=== PATIENT | female | born 1980 | race Caucasian/White ===

== ENCOUNTER → 2018-08-10 | Outpatient (CLI) | payer OTHER | LOC: FIMAGING 09:52 | PROVIDERS: ATTEND Obstetrics & Gynecology | DX: O09.522 Supervision of elderly multigravida, second trimester (principal); Z3A.21 21 weeks gestation of pregnancy; Z87.59 Personal history of other complications of pregnancy, childbirth and the puerperium ==

== ENCOUNTER 2018-12-18 06:00 | Inpatient (IN) | payer OTHER ==
[2018-12-18] MEDS ORDERED: AMMONIA AROMATIC 1 EACH AMP IH ONE ×2 (11:50→11:53)
[2018-12-18] MEDS ORDERED: LIDOCAINE 1% 300 MG/30 ML SDV ONE (11:50)
[2018-12-18] MEDS ORDERED: TERBUTALINE SULFATE 1 MG/ML VIAL ONE (11:50)
[2018-12-18] MEDS ORDERED: OLIVE OIL 118 ML BTL MISC ONE ×2 (11:50→11:52)
[2018-12-18] MEDS ORDERED: OXYTOCIN 10 UNIT/ML VIAL ONE (11:51)
[2018-12-18] MEDS ORDERED: MISOPROSTOL 200 MCG TAB ONE (11:51)
[2018-12-18] MEDS ORDERED: OXYTOCIN/RINGERS LACTATE 20 UNIT/1,000 ML BAG IV ONE (11:52)
[2018-12-18] MEDS ORDERED: LIDOCAINE 1% 300 MG/30 ML SDV SC PRN (12:03)
[2018-12-18] MEDS ORDERED: EPSOM SALT 454 GM TP PRN (12:03)
[2018-12-18] MEDS ORDERED: OXYTOCIN/RINGERS LACTATE 500 ML IV SCH ×2 (12:03→13:00)
[2018-12-18] MEDS ORDERED: OLIVE OIL 118 ML BTL MISC PRN (12:03)
[2018-12-18] MEDS ORDERED: LR 500 ML IV PRN ×2 (12:03→12:42)
[2018-12-18] MEDS ORDERED: IBUPROFEN 600 MG TAB PO PRN (12:03)
[2018-12-18] MEDS ORDERED: LR 1,000 ML IV PRN (12:03)
[2018-12-18] MEDS ORDERED: OXYTOCIN/RINGERS LACTATE 1,000 ML IV PRN (12:03)
[2018-12-18] MEDS ORDERED: MISOPROSTOL 200 MCG TAB PR PRN (12:03)
--- NOTE | 2018-12-18 13:23 | GHP ---
[f rep st] HISTORY AND PHYSICAL DATE OF ADMISSION: 12/18/2018 ADMITTING DIAGNOSIS: 1. Intrauterine at 39 weeks 3 days. 2. Elective induction of labor. HISTORY OF PRESENT ILLNESS: Patient is a 38-year-old 2, para 0-1-0-1, at 39 weeks 3 days with estimated due date 12/22/2018 by LMP 03/17/2018, and consistent with ultrasound at 10 weeks. The patient presents for an elective induction of labor. There were concerns about an unstable lie with polyhydramnios. Patient still feels as if baby girl's head is down. She was scanned today, which confirms cephalic presentation. Patient states good movement. She denies any leakage of fluid, vaginal bleeding, or any regular contractions at this time. The patient was examined by nurse on admission, and found to be 3 cm dilated, 70%, -2 station, bulging. The patient has good care at [facility], and presented in her first trimester. is complicated by AMA with negative NIPT. Level 2 ultrasound done with MFM was normal. The patient does have a history of preeclampsia in previous , and had normal baseline PIH labs and is taking a baby aspirin. Blood pressures remained stable throughout this . The patient has history of anxiety, currently not on any medications and no issues during the . The patient is a cystic fibrosis carrier, and father of baby tested negative. GBS culture is negative. The patient did receive flu vaccine as well as Tdap. PAST OBSTETRIC HISTORY: In December 2003, she delivered a viable male at 36 weeks, induced secondary to preeclampsia, weighing 5 pounds 10 ounces; had an uncomplicated vaginal delivery. GYNECOLOGIC HISTORY: Age of menarche is 17. Cycles every 28-30 days for 5 days. LMP 03/17/2018. The patient does have a history of abnormal Pap smears, and had a colpo in 09/2017 revealing PAULINE 1, and no treatment. 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 Patient denies exposure to any other sexually transmitted diseases. CURRENT MEDICATIONS: Include vitamins, DHA, baby aspirin. ALLERGIES: No known drug allergies. PAST MEDICAL HISTORY: PAULINE 1, anxiety, advanced maternal age and cystic fibrosis carrier. PAST SURGICAL HISTORY: [place] teeth extraction. FAMILY HISTORY: Maternal grandfather: Myocardial infarction. Maternal grandmother: Heart disease. Mother: Hypertension. Father: Asthma. Paternal grandfather: Colon cancer. Maternal aunt: Breast cancer. SOCIAL HISTORY: Patient is and lives with her and their son. She denies any alcohol, tobacco, or illicit drug use currently. REVIEW OF SYSTEMS: 10-point review of systems is negative. Pertinent positives noted in HPI. LABORATORY: First trimester H and H, 13.2 and 38.7, platelets 217. Blood type B positive, antibody negative. RPR nonreactive. Rubella immune. Hepatitis B surface antigen negative. HIV negative. Standard panel revealed cystic fibrosis carrier; father of baby tested negative. Baseline PIH labs normal. UA, urine culture, and urine drug screen all negative. Pap, gonorrhea , chlamydia cultures negative. Single AFP negative. Innatal screen 06/02/18. H and H 3rd trimester, 11.9 and 35.7. One-hour Glucola 88. GBS culture negative. Varicella immune. PHYSICAL EXAMINATION: VITAL SIGNS: On admission, vital signs are stable. Patient is afebrile, 37.3, blood pressure 115/69, heart rate 75, respirations 18. GENERAL: Patient is a well-nourished, well-developed female. Alert and oriented x3. No apparent distress. SKIN: Warm, dry without rash. NEURO: Grossly intact. CARDIOVASCULAR: Regular rate and rhythm. LUNGS: Clear to auscultation bilaterally. ABDOMEN: Gravid, soft, nontender. PELVIC: On exam , 3 cm, 70%, -2 station, bulging. EXTREMITIES: Normal to inspection without calf tenderness or edema. IMAGING: Bedside ultrasound confirms cephalic presentation. heart tones: Category 1 tracing with baseline 130s, positive accelerations , no decelerations, moderate variability. On toco, there are occasional contractions. ASSESSMENT/PLAN: Patient is a 38-year-old 2, para 0-1-0-1 at 39 weeks 3 days for elective induction. 1. Admit to Labor and Delivery. 2. Will start Pitocin per protocol since favorable cervix. 3. GBS culture is negative, no prophylactic antibiotics are needed. 4. Patient desires epidural for pain. 5. Anticipate spontaneous vaginal delivery. /[id number]/MODL MTDD
[2018-12-18 13:24] LABS: PLATELET COUNT 167 10^3/uL (150-400)
--- NOTE | 2018-12-18 18:54 | OBPROG ---
Labor Progress Note Assessment/Plan: Assessment: 38 y/o @ 39 3/7 weeks for elective IOL Plan: Pitocin at 14 mu/min SVE: 5/80/-2, BBOW Pt desires epidural prior to AROM Will page anesthesiology FHTs are Category 1, will cont to monitor Anticipate 12/18/18 18:47 Subjective/Intrapartum Course: 12/18/18 18:49 Pt is requesting an epidural at this time. Objective: 12/18/18 13:00 Patient ABO/Rh B POSITIVE 12/18/18 13:00 - SVE Dilation (cm): 5 Effacement (%): 80 Station: -2 Membranes: Intact - Contraction Pattern Assessment Current Contraction Pattern: Irregular (q3-5 min with coupling) - FHR Assessment Rodríguez FHR (bpm): 130 FHR Pattern Variability: Moderate FHR Category: 1 - AP Antepartum Course: 12/18/18 18:50 AMA with neg NIPT and normal Level II scan h/o preeclampsia with G1 with normal baseline labs, on baby ASA and no issues with BPs this CF carrier, FOB tested negative At 33 weeks EFW 37% and ALAN borderline high at 22 and then at 35 weeks ALAN at 24 and baby was breech; unstable lie Oxytocin Orders Assessment - Pre-Induction/Augmentation Assessment Gestational Age: 39 week(s) and 3 day(s) ICD10 Worksheet Patient Problems: Problems Problem Status Onset Encounter for elective induction of labor Acute - ICD10 Problem Qualifiers (1) Encounter for elective induction of labor
[2018-12-18] MEDS ORDERED: PHENYLEPHRINE HCL 100 MCG/ML SYR ONE (18:55)
[2018-12-18] MEDS ORDERED: BUPIVACAINE 0.25% 10 ML SDV ONE (18:55)
[2018-12-18] MEDS ORDERED: fentaNYL 200 MCG, BUPIVACAINE 0.5% 20 ML in NS 100 ML EP SCH (19:00)
--- NOTE | 2018-12-18 19:43 | OBPROG ---
Labor Progress Note Assessment/Plan: Assessment: 38 y/o @ 39 3/7 weeks for elective IOL Plan: Pt is comfortable, s/p epidural Pitocin at 14 mu/min AROM - large amount of clear fluid noted FHTs - Cat I, reassuring Anticipate 12/18/18 19:40 Subjective/Intrapartum Course: 12/18/18 18:49 Pt is requesting an epidural at this time. 12/18/18 19:41 Pt is comfortable, s/p epidural. Objective: 12/18/18 13:00 Patient ABO/Rh B POSITIVE 12/18/18 13:00 - SVE Dilation (cm): 5 Effacement (%): 80 Station: -2 Membranes: AROM Amniotic Fluid Color: Clear (large amount clear fluid noted) - Contraction Pattern Assessment Current Contraction Pattern: Irregular (q2-4 min with coupling) - FHR Assessment Rodríguez FHR (bpm): 130 FHR Pattern Variability: Moderate FHR Category: 1 - Procedures Non-surgical Procedures: Amniotomy - AP Antepartum Course: 12/18/18 18:50 AMA with neg NIPT and normal Level II scan h/o preeclampsia with G1 with normal baseline labs, on baby ASA and no issues with BPs this CF carrier, FOB tested negative At 33 weeks EFW 37% and ALAN borderline high at 22 and then at 35 weeks ALAN at 24 and baby was breech; unstable lie Oxytocin Orders Assessment - Pre-Induction/Augmentation Assessment Gestational Age: 39 week(s) and 3 day(s) ICD10 Worksheet Patient Problems: Problems Problem Status Onset Encounter for elective induction of labor Acute - ICD10 Problem Qualifiers (1) Encounter for elective induction of labor
[2018-12-18] MEDS ORDERED: NALOXONE HCL 0.4 MG/ML INJ IVP PRN (19:45)
[2018-12-18] MEDS ORDERED: ONDANSETRON 4 MG/2 ML VIAL IVP PRN (19:45)
--- NOTE | 2018-12-18 19:46 | PREANESOB ---
Obstetric Pre-Anesthesia Info - General Info Proposed Procedure: Labor Epidural : 2 Para: 1 JUAN A: 12/22/18 Gestational Age: 39 week(s) and 3 day(s) - Info Status: Full Term - Labor Status Cervical Dilation per last OB SVE: 5 Station per last OB SVE: -2 Amniotic Fluid Color: Clear (large amount clear fluid noted) Indications for Labor Analgesia: Pain Control Labor Epidural: Yes Anesthesia Allergies/Adverse Reactions: Allergy/AdvReac Type Severity Reaction Status Date / Time No Known Allergies Allergy Unverified 12/15/18 13:26 Home Medications: Medication Instructions Recorded Aspirin [Aspirin 81mg (*)] 81 mg PO DAILY 12/18/18 1 tab PO DAILY 12/18/18 Visit Medications: Generic Name Dose Route Start Last Admin Trade Name Freq PRN Reason Stop Dose Admin Lactated Ringer's 500 mls @ 500 mls/hr 12/18/18 12:03 Lr IV PRN PRN Maternal Hypotension Lactated Ringer's 1,000 mls @ 0 mls/hr 12/18/18 12:03 Lr IV 12/19/18 12:02 PRN PRN SEE PROTOCOL CONDITIONS Protocol Per Protocol Oxytocin/Lactated Ringer's 500 mls @ 0 mls/hr 12/18/18 12:03 Pitocin 30 Units/Lr (Premix) IV 06/16/19 12:02 CONT VERONICA Protocol Per Protocol Oxytocin/Lactated Ringer's 1,000 mls @ 125 mls/hr 12/18/18 12:03 Pitocin 20 Units/Lr (Premix) IV PRN PRN Post bleeding Lactated Ringer's 500 mls @ 500 mls/hr 12/18/18 12:42 Lr IV 12/19/18 12:42 PRN PRN Maternal Hypotension Oxytocin/Lactated Ringer's 500 mls @ 0 mls/hr 12/18/18 13:00 Pitocin 30 Units/Lr (Premix) IV 06/16/19 12:59 CONT [facility] Protocol Per Protocol Fentanyl 200 mcg/ Bupivacaine 100 mls @ 0 mls/hr 12/18/18 19:00 HCl 20 ml/ Sodium Chloride EP 12/28/18 18:59 CONT [facility] Protocol As Directed Ibuprofen 600 mg 12/18/18 12:03 Motrin PO ONCE PRN post , pain Lidocaine HCl 300 mg 12/18/18 12:03 Lidocaine Hcl 1% SC 06/16/19 12:02 ONCE PRN episiotomy Magnesium Sulfate 454 gm 12/18/18 12:03 Epsom Salt TP 06/16/19 12:02 Q1H PRN perineal discomfort Misoprostol 800 - 1,000 mcg 12/18/18 12:03 Cytotec MO ONCE PRN Vaginal Atony/Bleeding [place] Oil 118 ml 12/18/18 12:03 Sweet Oil MISC 06/16/19 12:02 ONCE PRN perineal massage Discontinued Medications Generic Name Dose Route Start Last Admin Trade Name Freq PRN Reason Stop Dose Admin Ammonia (Aromatic Spirit) Confirm 12/18/18 11:50 Ammonia Aromatic Administered 12/18/18 11:51 Dose 1 each IH .STK-MED ONE Ammonia (Aromatic Spirit) Confirm 12/18/18 11:53 Ammonia Aromatic Administered 12/18/18 11:54 Dose 1 each IH .STK-MED ONE Bupivacaine HCl Confirm 12/18/18 18:55 Sensorcaine 0.25% Sdv Administered 12/18/18 18:56 Dose 10 ml .ROUTE .STK-MED ONE Lidocaine HCl Confirm 12/18/18 11:50 Lidocaine Hcl 1% Administered 12/18/18 11:51 Dose 300 mg .ROUTE .STK-MED ONE Misoprostol Confirm 12/18/18 11:51 Cytotec Administered 12/18/18 11:52 Dose 1,000 mcg .ROUTE .STK-MED ONE Bay Oil Confirm 12/18/18 11:50 Sweet Oil Administered 12/18/18 11:51 Dose 118 ml MISC .STK-MED ONE Bay Oil Confirm 12/18/18 11:52 Sweet Oil Administered 12/18/18 11:53 Dose 118 ml MISC .STK-MED ONE Oxytocin Confirm 12/18/18 11:51 Pitocin Administered 12/18/18 11:52 Dose 40 unit .ROUTE .STK-MED ONE Oxytocin/Lactated Ringer's Confirm 12/18/18 11:52 Pitocin 20 Units/Lr (Premix) Administered 12/18/18 11:53 Dose 20 unit IV .STK-MED ONE Phenylephrine HCl Confirm 12/18/18 18:55 Neosynephrine Administered 12/18/18 18:56 Dose 1,000 mcg .ROUTE .STK-MED ONE Terbutaline Sulfate Confirm 12/18/18 11:50 Brethine Administered 12/18/18 11:51 Dose 1 mg .ROUTE .STK-MED ONE - Vital Signs Height/Weight (Nursing): Height 160.02 cm Weight 83.007 kg - Focused Exam Neck exam: FROM Mallampati Score: Class 2 Mouth exam: normal dental/mouth exam Pulmonary: clear to auscultation Cardiovascular: regular rate and rhythym Labs: 12/18/18 13:00 Patient ABO/Rh B POSITIVE 12/18/18 13:00 - Plan Consent Signed and on Chart: Yes
[2018-12-18] MEDS ORDERED: fentaNYL 2MCG/ML/BUP 0.1% RTU 100 ML EP SCH (20:00)
[2018-12-18] MEDS ORDERED: LR 500 ML IV SCH (20:00)
--- NOTE | 2018-12-18 21:51 | OBPROG ---
Labor Progress Note Assessment/Plan: Assessment: 38 y/o @ 39 3/7 weeks for elective IOL Plan: Pt was rebolused by anesthesiologist secondary to pain L side of abdomen and hip and is feeling much better now SVE: complete, +2 Will have pt labor down x 15 min and then will start pushing FHTs - Cat 2 tracing with intermittent variable decels Anticipate 12/18/18 21:47 Subjective/Intrapartum Course: 12/18/18 18:49 Pt is requesting an epidural at this time. 12/18/18 19:41 Pt is comfortable, s/p epidural. 12/18/18 21:50 Pt was c/o pain L side of abdomen and hip; pt was rebolused by anesthesiologist and feeling better now; denies any pressure or urge to push. Objective: 12/18/18 13:00 Patient ABO/Rh B POSITIVE 12/18/18 13:00 - SVE Dilation (cm): 10 Effacement (%): 100 Station: +2 Membranes: AROM Amniotic Fluid Color: Clear (large amount clear fluid noted) - Contraction Pattern Assessment Current Contraction Pattern: Regular (q 2-4 min) - FHR Assessment Rodríguez FHR (bpm): 130 FHR Pattern Variability: Moderate FHR Category: 2 (Intermittent mild variable decels noted) - Procedures Non-surgical Procedures: Amniotomy - AP Antepartum Course: 12/18/18 18:50 AMA with neg NIPT and normal Level II scan h/o preeclampsia with G1 with normal baseline labs, on baby ASA and no issues with BPs this CF carrier, FOB tested negative At 33 weeks EFW 37% and ALAN borderline high at 22 and then at 35 weeks ALAN at 24 and baby was breech; unstable lie Oxytocin Orders Assessment - Pre-Induction/Augmentation Assessment Gestational Age: 39 week(s) and 3 day(s) ICD10 Worksheet Patient Problems: Problems Problem Status Onset Encounter for elective induction of labor Acute - ICD10 Problem Qualifiers (1) Encounter for elective induction of labor
[2018-12-18] MEDS ORDERED: HYDROCORTISONE 0.5% CREAM TP PRN (22:34)
[2018-12-18] MEDS ORDERED: SIMETHICONE 80 MG TAB CHEW PO PRN (22:34)
--- NOTE | 2018-12-18 22:46 | OBDEL ---
Info Type: Vaginal Presentation at Delivery: Vertex (ROP) L&D Analgesia/Anesthesia Type: Epidural GBS+: No - Hospital Course Intrapartum: 12/18/18 18:49 Pt is requesting an epidural at this time. 12/18/18 19:41 Pt is comfortable, s/p epidural. 12/18/18 21:50 Pt was c/o pain L side of abdomen and hip; pt was rebolused by anesthesiologist and feeling better now; denies any pressure or urge to push. Indications for Delivery: Elective Vaginal Delivery - Delivery Provider Delivery Physician/CNM: Paulette Mcnamara - Labor and Delivery Onset of Contractions Date: 12/18/18 Onset of Contractions Time: 18:00 Onset of Contractions Type: Induced Rupture of Membranes Date: 12/18/18 Rupture of Membranes Time: 19:24 Rupture of Membranes Type: Artificial Amniotic Fluid Color: Clear (large amount clear fluid noted) Dilation Complete Date: 12/18/18 Dilation Complete Time: 21:47 Placenta Delivery Date: 12/18/18 Placenta Delivery Time: 22:28 Total Hours of Labor: 4 Non-surgical Procedures: Amniotomy Laceration: Other (Specify) (Perineum intact; no vaginal lacs) Repair: Other (Specify) (None) Vaginal Sponge Count Correct: Yes Vaginal Needle Count Correct: Yes Vaginal Sweep Performed: Yes EBL: 250 cc Delivery Events: Other (Specify) (Cord wrapped tightly x 1 around L lower limb) Delivery Comment: A viable female born at 2224 over intact perineum under an epidural with 8 and 9 Apgars in ROP presentation. Baby girl to maternal abdomen. NO nuchal cord, but cord wrapped tightly x 1 around L lower limb. Delayed cord clamping x 60 sec. Cord clamped x 2 and cut. Cord bloods obtained. Placenta delivered spontaneously intact with 3-vc. Inspection of vagina and perineum revealed no tears or lacs. EBL 250 cc. Uterus FF below umbilicus with minimal bleeding noted. Pt timothy well. No complications. Both mom and baby girl in stable condition. - Medications Labor Augmentation/Induction Methods Used: Pitocin Labor Augmentation/Induction Indication: Elective Data JUAN A: 12/22/18 Gestational Age: 39 week(s) and 3 day(s) Rodríguez Delivery Date: 12/18/18 Delivery Time: 22:24 Sex of Infant: Female Score (1 Min): 8 Score (5 Min): 9 ICD10 Worksheet Patient Problems: Problems Problem Status Onset Encounter for elective induction of labor Acute (spontaneous vaginal delivery) Acute - ICD10 Problem Qualifiers (1) Encounter for elective induction of labor (2) (spontaneous vaginal delivery)
--- NOTE | 2018-12-19 04:40 | POSTANESTH ---
Post Anesthetic Evaluation Cardiovascular Status: Normal, Stable Respiratory Status: Normal, Stable Level of Consciousness/Mental Status: Can Participate in Eval, Alert and Oriented Pain Control: Adequate, Prn Tx Ordered Nausea/Vomiting Control: Adequate, Prn Tx Ordered Complications Possibly Related to Anesthesia: None Noted (Placenta Delivery Time & Epidural End time 12/18/18 @ 22:28)
[2018-12-19] MEDS: IBUPROFEN 600 MG TAB PO PRN ×4 (05:18→23:46)
--- NOTE | 2018-12-19 08:17 | OBPP ---
Progress Note Assessment/Plan: Assessment: 38 yo G2now P1102 PPD#1 s/p about 13 hours ago. Exhausted. Working on . Plan: Encouraged rest and decrease visitors. Continue routine pp cares and support. Sheri Beebe MD, FACOG 12/19/18 11:44 Subjective/ Course: Pt tearful and overwhelmed as is trying to breastfeed. Did not sleep at all last night and is exhausted, has had lots of visitors this morning. Ambulating and voiding without difficulty. Mod lochia. 12/19/18 11:46 Objective: 12/18/18 13:00 Patient ABO/Rh B POSITIVE 12/18/18 13:00 Temp Pulse Resp BP Pulse Ox 36.4 C 67 16 117/81 H 97 12/19/18 03:15 12/19/18 03:15 12/19/18 03:15 12/19/18 03:15 12/19/18 01:00 gen - pleasant female, currently tearful but appropriately interactive while in the rocking chair. CV - RRR chest - CTAB abd - soft, fundus firm at u, NT, +BS ext - trace BLE, no calf tenderness Uterine Position/Fundal Height: At Umbilicus Uterine Tone: Firm
[2018-12-19] MEDS: DOCUSATE SODIUM 100 MG CAP PO PRN (08:36)
[2018-12-19] MEDS: ACETAMINOPHEN 325 MG TAB PO PRN ×3 (11:32→23:47)
[2018-12-20] MEDS: ACETAMINOPHEN 325 MG TAB PO PRN ×2 (05:41→12:30)
[2018-12-20] MEDS: DOCUSATE SODIUM 100 MG CAP PO PRN (05:41)
[2018-12-20] MEDS: IBUPROFEN 600 MG TAB PO PRN ×2 (05:42→12:30)
[2018-12-20 08:31] VITALS: BP 114/80
--- NOTE | 2018-12-20 11:00 | OBPP ---
Progress Note Assessment/Plan: Assessment: Assessment: 38 yo G2 now P1102 PPD#2 s/p . Doing much better this AM w BF and pain. Ready for home. RH pos, Rubella immune. F/u 4 wks mood check, 6 wks PP visit. NOHEMI Subjective/ Course: Pt tearful and overwhelmed as is trying to breastfeed. Did not sleep at all last night and is exhausted, has had lots of visitors this morning. Ambulating and voiding without difficulty. Mod lochia. 12/19/18 11:46 12/20/18 11:00 Doing much better this AM - ready for home. BF going better, pain controlled. Objective: 12/18/18 13:00 Patient ABO/Rh B POSITIVE 12/18/18 13:00 Temp Pulse Resp BP Pulse Ox 36.1 C 60 16 114/80 95 12/20/18 08:31 12/20/18 08:31 12/20/18 08:31 12/20/18 08:31 12/20/18 08:31 Selected Entries 12/18/18 12/18/18 12/18/18 12:04 19:46 22:00 Score (1 Min) [Rodríguez ] Score (5 Min) [Rodríguez ] Current Tetanus Yes Diphtheria and Acellular Pertussis (TDAP ) Delivery Date [ 12/18/18 Rodríguez] Delivery Time [ 22:24 Rodríguez] JUAN A 12/22/18 12/22/18 Estimated Blood Loss (ml) Gestational Age 39 week(s) and 3 day(s) 2 2 Para 1 1 Pertinent PMH anxiety, preeclampsia prior , wisdom teeth extraction 1 Rubella Immune Yes Sex of [ Rodríguez] Term 0 12/18/18 12/18/18 12/19/18 22:37 22:47 01:00 Score (1 8 8 Min) [Rodríguez ] Score (5 9 9 Min) [Rodríguez ] Current Tetanus Diphtheria and Acellular Pertussis (TDAP ) Delivery Date [ 12/18/18 12/18/18 Rodríguez] Delivery Time [ 22:24 22:24 Rodríguez] JUAN A 12/22/18 Estimated Blood 250 Loss (ml) Gestational Age 39 week(s) and 39 week(s) and 3 day(s) 4 day(s) 2 Para 2 Pertinent PMH 1 Rubella Immune Sex of [ Female Female Rodríguez] Term 1 12/19/18 03:15 Score (1 Min) [Rodríguez ] Score (5 Min) [Rodríguez ] Current Tetanus Diphtheria and Acellular Pertussis (TDAP ) Delivery Date [ Rodríguez] Delivery Time [ Rodríguez] JUAN A Estimated Blood Loss (ml) Gestational Age 39 week(s) and 4 day(s) Para Pertinent PMH Rubella Immune Sex of Infant [ Rodríguez] Term Laboratory Tests 12/18/18 13:00 Patient ABO/Rh B POSITIVE
--- NOTE | 2018-12-20 11:04 | OBGCSDC ---
General Delivery Information - General Info : 2 Para: 2 Abortions: 0 Type: Vaginal L&D Analgesia/Anesthesia Type: Epidural Admission Date: 12/18/18 Labs: Patient ABO/Rh B POSITIVE 12/18/18 13:00 Hct 40.3 % (38.0-47.0) 12/18/18 13:00 - Hospital Course Antepartum: 12/18/18 18:50 AMA with neg NIPT and normal Level II scan h/o preeclampsia with G1 with normal baseline labs, on baby ASA and no issues with BPs this CF carrier, FOB tested negative At 33 weeks EFW 37% and ALAN borderline high at 22 and then at 35 weeks ALAN at 24 and baby was breech; unstable lie Intrapartum: 12/18/18 18:49 Pt is requesting an epidural at this time. 12/18/18 19:41 Pt is comfortable, s/p epidural. 12/18/18 21:50 Pt was c/o pain L side of abdomen and hip; pt was rebolused by anesthesiologist and feeling better now; denies any pressure or urge to push. : Pt tearful and overwhelmed as is trying to breastfeed. Did not sleep at all last night and is exhausted, has had lots of visitors this morning. Ambulating and voiding without difficulty. Mod lochia. 12/19/18 11:46 12/20/18 11:00 Doing much better this AM - ready for home. BF going better, pain controlled. Vaginal - Delivery Provider Delivery Physician/CNM: Paulette Mcnamara - Diagnosis Labor: Induced Rupture of Membranes Type: Artificial Amniotic Fluid Color: Clear (large amount clear fluid noted) Laceration: Other (Specify) (Perineum intact; no vaginal lacs) Repair: Other (Specify) (None) Delivery Events: Other (Specify) (Cord wrapped tightly x 1 around L lower limb) - Procedures Non-surgical Procedures: Amniotomy - Delivery Non-surgical Procedures: Amniotomy EBL: 250 cc Data JUAN A: 12/22/18 Gestational Age: 39 week(s) and 5 day(s) Rodríguez Delivery Date: 12/18/18 Delivery Time: 22:24 Sex of : Female Weight (gm): 0 g Score (1 Min): 8 Score (5 Min): 9 Discharge Information - Discharge Information Condition: Good Instruction/Follow Up: See Instruction Sheet, Four Weeks, Six Weeks (4 wk mood check, 6 wk PP visit)
== END 2018-12-20 13:54 | disposition home or self-care (01) | DRG 807 ==
LOC: FLD 11:10 → FOB 12-19 00:18
PROVIDERS: ADMIT Obstetrics & Gynecology; ATTEND Obstetrics & Gynecology
PROC: 10907ZC Drainage of Amniotic Fluid, Therapeutic from Products of Conception, Via Natural or Artificial Opening (ICD-10-PCS; principal; 2018-12-18)
PROC: 10E0XZZ Delivery of Products of Conception, External Approach (ICD-10-PCS; principal; 2018-12-18)
PROC: 3E033VJ Introduction of Other Hormone into Peripheral Vein, Percutaneous Approach (ICD-10-PCS; principal; 2018-12-18)
DX: O69.2XX0 Labor and delivery complicated by other cord entanglement, with compression, not applicable or unspecified (principal); Z3A.39 39 weeks gestation of pregnancy; Z37.0 Single live birth
CPT/HCPCS: J2370; J2590; J3010; J3105